=== PATIENT | female | born 1980 | race Caucasian/White ===

== ENCOUNTER 2016-12-08 18:39 | Outpatient (CLI) ==
[2015-07-06 13:30] VITALS: BMI 58.2
== END 2016-12-08 18:40 | disposition short-term general hospital (02) ==
LOC: AMBL 18:39
PROVIDERS: ATTEND Internal Medicine
DX: R07.9 Chest pain, unspecified (principal); M25.511 Pain in right shoulder; Z74.01 Bed confinement status

== ENCOUNTER 2017-10-13 20:06 | Outpatient (CLI) ==
[2015-07-06 13:30] VITALS: BMI 58.2
== END 2017-10-13 20:07 | disposition home or self-care (01) ==
LOC: LAB 20:06
PROVIDERS: ATTEND Family Medicine
DX: R11.10 Vomiting, unspecified (principal)
CPT/HCPCS: 36415; 84450; 84460